=== PATIENT | female | born 1965 | race Caucasian/White ===

== ENCOUNTER 2021-03-28 12:16 | Outpatient (REF) | payer OTHER, SELFPAY ==
--- NOTE | ~2021-03-28 | MM_ITS ---
EXAMINATION: MM SCREENING DIGITAL BREAST TOMOSYNTHESIS, BILATERAL CLINICAL INFORMATION: Screening. Asymptomatic. The lifetime risk of breast cancer based on the Tyrer-Cuzick Model is 8.7%. COMPARISON: Mammography: March 22, 2020 and studies dating back to November 20, 2013 TECHNIQUE: Digital breast tomosynthesis is performed in both the craniocaudal and mediolateral oblique views along with computer-aided detection (CAD). Synthesized 2D images are generated from the tomosynthesis. FINDINGS: The breasts are heterogeneously dense, which may obscure small masses (ACR BI-RADS breast composition Category c). There are no significant masses, abnormal calcifications, or other abnormalities. MM/MM tomosynthesis screening BI IMPRESSION: There are no significant changes from prior study. ASSESSMENT: BI-RADS 1: Negative RECOMMENDATION: Routine annual mammography screening. This patient's information was entered into a reminder system with a target due date for their next mammogram.
== END 2021-03-28 12:17 | disposition home or self-care (01) ==
LOC: HO.MAMMO 12:16
PROVIDERS: PCP Family Medicine; Visit Provider Family Medicine
DX: Z12.31 Encounter for screening mammogram for malignant neoplasm of breast (principal)
CPT/HCPCS: 77063; 77067

== ENCOUNTER 2022-04-23 11:55 | Outpatient (REF) | payer OTHER, SELFPAY ==
--- NOTE | ~2022-04-23 | MM_ITS ---
EXAMINATION: MM SCREENING DIGITAL BREAST TOMOSYNTHESIS, BILATERAL CLINICAL INFORMATION: Screening. Asymptomatic. The lifetime risk of breast cancer based on the Tyrer-Cuzick Model is 8%. COMPARISON: Mammography: 03/28/2021, 03/22/2020, 03/17/2019 TECHNIQUE: Digital breast tomosynthesis is performed in both the craniocaudal and mediolateral oblique views along with computer-aided detection (CAD). Synthesized 2D images are generated from the tomosynthesis. FINDINGS: The breasts are heterogeneously dense, which may obscure small masses (ACR BI-RADS breast composition Category c). There are no significant masses, abnormal calcifications, or other abnormalities. Parenchymal pattern is similar to prior studies. Skin contours are smooth. MM/MM tomosynthesis screening BI IMPRESSION: No mammographic evidence of malignancy. ASSESSMENT: BI-RADS 1: Negative RECOMMENDATION: Routine annual mammography screening. This patient's information was entered into a reminder system with a target due date for their next mammogram.
== END 2022-04-23 11:56 | disposition home or self-care (01) ==
LOC: HO.MAMMO 11:55
PROVIDERS: PCP Family Medicine; Visit Provider Family Medicine
DX: Z12.31 Encounter for screening mammogram for malignant neoplasm of breast (principal)
CPT/HCPCS: 77063; 77067

== ENCOUNTER 2023-04-29 11:25 | Outpatient (REF) | payer OTHER, SELFPAY ==
--- NOTE | ~2023-04-29 | MM_ITS ---
EXAMINATION: MM SCREENING DIGITAL BREAST TOMOSYNTHESIS, BILATERAL CLINICAL INFORMATION: Screening. Asymptomatic. The lifetime risk of breast cancer based on the Tyrer-Cuzick Model is 7.6%. COMPARISON: Mammography: 03/28/2021, and exams dating back to 2010. TECHNIQUE: Digital breast tomosynthesis is performed in both the craniocaudal and mediolateral oblique views along with computer-aided detection (CAD). Synthesized 2D images are generated from the tomosynthesis. FINDINGS: The breasts are heterogeneously dense, which may obscure small masses (ACR BI-RADS breast composition Category c). There are no suspicious masses, suspicious grouped calcifications, or areas of architectural distortion. The parenchymal pattern is stable from prior exams. MM/MM tomosynthesis screening BI IMPRESSION: No mammographic evidence of malignancy. ASSESSMENT: BI-RADS BI-RADS 1 - Negative RECOMMENDATION: Routine annual mammography screening. 1 year F/U This examination should not preclude the clinical evaluation of a suspicious palpable abnormality. This patient's information was entered into a reminder system with a target due date for their next mammogram.
== END 2023-04-29 11:26 | disposition home or self-care (01) ==
LOC: HO.MAMMO 11:25
PROVIDERS: PCP Family Medicine; Visit Provider Family Medicine
DX: Z12.31 Encounter for screening mammogram for malignant neoplasm of breast (principal)
CPT/HCPCS: 77063; 77067

== ENCOUNTER → 2023-04-29 11:45 | Outpatient (BNV) | payer OTHER, SELFPAY | PROVIDERS: PCP Family Medicine; Visit Provider Radiology Diagnostic Radiology | DX: Z12.31 Encounter for screening mammogram for malignant neoplasm of breast (principal) | CPT/HCPCS: 77063; 77067 ==

== ENCOUNTER 2023-10-17 10:24 | Outpatient (REF) | payer OTHER, SELFPAY | END 2023-10-17 10:25 | disposition home or self-care (01) | LOC: HO.SH 10:24 | PROVIDERS: Visit Provider Family Medicine | DX: Z01.118 Encounter for examination of ears and hearing with other abnormal findings (principal); H91.93 Unspecified hearing loss, bilateral | CPT/HCPCS: 92557; 92567 ==

== ENCOUNTER 2023-12-10 13:34 | Outpatient (REF) | payer OTHER, SELFPAY ==
[2023-12-10 15:11] LABS: Free T4 (Free Thyroxine) 0.76 ng/dL (0.71-1.85); Thyroid Stimulating Hormone 3.19 uIU/mL (0.32-4.0)
[2023-12-11 18:23] LABS: Triiodothyronine T3 Free 2.9 pg/mL (2.3-4.2)
== END 2023-12-10 13:35 | disposition home or self-care (01) ==
LOC: HO.LAB 13:34
DX: E03.8 Other specified hypothyroidism (principal)
CPT/HCPCS: 36415; 84439; 84443; 84481

== ENCOUNTER 2024-03-05 09:08 | Outpatient (REF) | payer OTHER, SELFPAY ==
--- NOTE | ~2024-03-05 | XR_ITS ---
EXAMINATION: XR ELBOW, LEFT CLINICAL INFORMATION: Pain COMPARISON: X-ray 10/13/2018 TECHNIQUE: AP, lateral, and oblique views of the left elbow. FINDINGS: No fracture or joint effusion. Alignment is anatomic. Joint spaces are maintained. No abnormal soft tissue calcification. XR/XR elbow LT min 3V IMPRESSION: No radiographically evident acute osseous abnormality.
== END 2024-03-05 09:09 | disposition home or self-care (01) ==
LOC: HO.HOSX 09:08
PROVIDERS: Visit Provider Physician Assistant
DX: M25.522 Pain in left elbow (principal)
CPT/HCPCS: 73080

== ENCOUNTER 2024-03-05 10:02 | Outpatient (AMB) | payer OTHER, SELFPAY ==
--- NOTE | 2024-03-05 10:04 | MHC.OFFVIS ---
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 Patient reports that she was going down her gravel driveway when she slipped causing her to fall hitting her left elbow. She was seen at an Urgent Care in the [facility]. Currently her pain has improved as well as her ROM however she continues be limited in her ROM. Denies numbness or tingling. Hx of left elbow fracture years ago. 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 She was seen at Urgent Care at [facility] where x-rays were performed. She currently states she has improvement in her pain however she continues to have limited ROM in her elbow. She denies any numbness or tingling. She has a history of left elbow fracture years ago. [facility] Surgical History (Updated 03/05/24 @ 10:18 by MIKE Kuo) Hx of section Hx of elbow surgery Social History (Updated 03/05/24 @ 10:19 by MIKE Kuo) Patient Tobacco Use Status: Never used Tobacco Current occupational status: retired Current occupation: right hand dominant Review of Systems Const All systems reviewed & are unremarkable except as noted in HPI and below Physical Exam Const General: cooperative, healthy appearing, comfortable, no acute distress, well developed and alert Orientation/consciousness: patient oriented x3 HEENT Head: Yes normal to inspection, Yes normocephalic and Yes atraumatic Eyes General: appearance normal, both eyes and all related structures Resp Effort & Inspection: normal respiratory effort and able to speak in complete sentences Cardio Rate: regular rate Peripheral pulses: Peripheral pulses 2+ throughout GI Palpation (GI): Soft to palpation Skin Lesions: no lesions Rashes: no rashes Neuro General: patient oriented x3 Extrem Other: Left elbow: Normal to inspection. She has mild tenderness along the medial epicondyle. No swelling, no redness, no open wound. No pain over the lateral epicondyle. No pain over the radial head. No pain over the olecranon. She has full flexion however her extension is lacking 5 degrees. NVI. Office Procedures Fracture Care Fracture Billing Code: Fracture Billing Code Results Reviewed Results Reviewed: Xrays were obtained in the office today and personally reviewed by me of the left elbow show possible non displaced occult fx of the medial epicondyle Assessment & Plan Assessment & Plan (1) Fracture of medial epicondyle of humerus: Code(s): S42.443A - Displaced fracture (avulsion) of medial epicondyle of unspecified humerus, initial encounter for closed fracture Category: Medical Plan I cannot rule out fracture given the xray does not show definitively; however, she does have significant pain along the med. epicondyle. She will increase activities as tolerated. I did encourage her to use caution with any type of resistance or weight bearing activities for 3-4 weeks as symptoms allow. If symptoms persist or worsen, patient will contact the office, otherwise follow-up as needed. Orders: Orders XR elbow LT min 3V 03/05/24 M25.522 - Pain in left elbow Patient Instructions: Scribed for Vik Borden PA-C, by Houston Sanchez medical scientific liaison, on 03/05/2024 at 10:00 AM EST.? I, Vik Borden PA-C, have personally reviewed and agree with the information entered by the scribe. Coding Level of Care Code New Pt Level 3 (91307) Diagnoses Fracture of medial epicondyle of humerus S42.443A CPT Codes Fracture Care - Fracture Billing Code: Fracture Billing Code ([id number])
== END 2024-03-05 13:27 | disposition home or self-care (01) ==
PROVIDERS: PCP Family Medicine; Visit Provider Physician Assistant
DX: S42.442A Displaced fracture (avulsion) of medial epicondyle of left humerus, initial encounter for closed fracture (principal)
CPT/HCPCS: 99203

== ENCOUNTER 2024-04-30 11:07 | Outpatient (REF) | payer OTHER, SELFPAY ==
--- NOTE | ~2024-04-30 | MM_ITS ---
EXAMINATION: MM SCREENING DIGITAL BREAST TOMOSYNTHESIS, BILATERAL CLINICAL INFORMATION: Screening. Asymptomatic. COMPARISON: Mammography: This study is compared with prior exams dating back to 2019. TECHNIQUE: Digital breast tomosynthesis is performed in both the craniocaudal and mediolateral oblique views along with computer-aided detection (CAD). Synthesized 2D images are generated from the tomosynthesis. FINDINGS: The breasts are heterogeneously dense, which may obscure small masses (ACR BI-RADS breast composition Category c). There are no significant masses, abnormal calcifications, or other abnormalities. MM/MM tomosynthesis screening BI IMPRESSION: No mammographic evidence of malignancy. ASSESSMENT: BI-RADS BI-RADS 1 - Negative RECOMMENDATION: Routine annual mammography screening. 1 year F/U This examination should not preclude the clinical evaluation of a suspicious palpable abnormality. This patient's information was entered into a reminder system with a target due date for their next mammogram. Electronically signed by: Saumya Costa MD 05/28/2024 11:31 AM EDT
== END 2024-04-30 11:08 | disposition home or self-care (01) ==
LOC: HO.MAMMO 11:07
PROVIDERS: PCP Family Medicine; Visit Provider Family Medicine
DX: Z12.31 Encounter for screening mammogram for malignant neoplasm of breast (principal)
CPT/HCPCS: 77063; 77067

== ENCOUNTER → 2024-04-30 11:15 | Outpatient (BNV) | payer OTHER, SELFPAY | PROVIDERS: PCP Family Medicine; Visit Provider Radiology Diagnostic Radiology | DX: Z12.31 Encounter for screening mammogram for malignant neoplasm of breast (principal) | CPT/HCPCS: 77063; 77067 ==

== ENCOUNTER 2025-05-19 12:18 | Outpatient (REF) | payer OTHER, SELFPAY ==
--- OUTSIDE RECORDS SUMMARY | 2025-05-19 12:57 | XMS_ITS | Clinical Summary ---
Author Organization [facility] Address [address] [place] [id number] Care Team Providers Care Auto Inspection Specialist Name Role Phone Keysha Pritchard MD Primary Care Provider [phone] Allergies No known active allergies Medications sertraline (Zoloft) 50 MG tablet Take 50 mg by mouth 1 (one) time each day. Active Social History Tobacco Use Types Packs/Day Years Used Date Smoking Tobacco: Never Smokeless Tobacco: Never Tobacco Cessation:Counseling Given: Not Answered Alcohol Use Standard Drinks/Week Comments Yes 4 (1 standard drink = 0.6 oz pur e alcohol) Comments Unknown Sex and Gender Information Value Date Recorded Sex Assigned at Not on file Legal Sex Female 11:37 AM EDT Gender Identity Not on file Sexual Orientation Not on file Last Filed Vital Signs Vital Sign Reading Time Taken Comments Blood Pressure 161/91 02/24/2024 11:43 AM EDT Pulse 75 02/24/2024 11:43 AM EDT Temperature 36.5 C (97.7 F) 02/24/2024 11:43 AM EDT Respiratory Rate 18 02/24/2024 11:43 AM EDT Oxygen Saturation 100% 02/24/2024 11:43 AM EDT Inhaled Oxygen Concentration - - Weight - - Height - - Body Mass Index - - Plan of Treatment Health Maintenance Due Date Last Done Comments Hepatitis C Screening 1964 HIV Screening 1979 Annual Wellness Visit 1982 Pap Smear 1985 Cervical Cancer Screening 1994 HPV/Cotest 1994 CT Colonography 2009 FIT-DNA 2009 FIT 2009 FOBT 2009 Sigmoidoscopy 2009 Mammogram 2014 COVID-19 Vaccine ( season) 2024 03/07/2022, 08/01/2021, 11/04/2020, Additional history exists Influenza Vaccine (#1) 2025 , 08/08/2020, 07/26/2020, Additional history exists Colonoscopy 06/11/2033 06/11/2023 Colorectal Cancer Screening 06/11/2033 DTaP,Tdap,and Td Vaccines (3 - Td or Tdap) 08/05/2033 08/05/2023, 11/07/2012, 03/02/2008 Respiratory Syncytial Virus (RSV): 60+ years (1 - 1-dose 75+ series) 2039 Zoster Vaccines Completed 05/08/2023, 02/20/2023 HPV Vaccines Aged Out No longer eligi ble based on patient's age to complete this topic Meningococcal Vaccine Aged Out No neal guillermo eligible based on patient's age to complete this topic Pneumococcal Vaccine: Pediatrics (0 to 5 Years) and At-Risk Patients (6 to 64 Years) Aged Out No longer eligible based on patient's age to complete this topic Insurance [facility] [employer] [place] [id number] Care Teams Auto Inspection Specialist Relationship Specialty Start Date End Date Keysha Pritchard [place] [address] PCP - General Family Medicine 02/24/24
--- OUTSIDE RECORDS SUMMARY | 2025-05-19 12:57 | XMS_ITS | Encounter Summary ---
Author Organization [facility] Address [address] [address] Phone Care Team Providers Care Cylinder Handler Name Role Phone Unknown, Unknown Primary Care Provider Frances atkins Encounter Details Date Type Department Care Team (Late st Contact Info) Description 06/11/2023 Procedure Pass [facility] Endoscopy Admitting Dept Virtual Department [address] [place] [address] Social History Tobacco Use Types Packs/Day Years Used Date Smoking Tobacco: Former Cigarettes Q uit: 1984 Smokeless Tobacco: Never Comments:In college Alcohol Use Standard Drinks/Week Comments Yes 2 (1 standard drink = 0.6 oz pur e alcohol) Education Answer Date Recorded Are you interested in more education? Not on heather e 01/18/2023 Are you concerned about learning? Not on file 01/18/2023 No 01/18/2023 No 01/18/2023 Digital Access Answer Date Recorded No 02/16/2023 No 02/16/2023 Reliable internet access at home? Not on file 02/16/2023 Device with a working camera? Not on file Intimate Partner Violence Answer Date R ecorded Are you denied basic needs s uch as food, clothing, or medical care? No 06/11/2023 In the past 12 months have y ou been in a relationship with a person who hurts, threatens, or tries to control you? No 06/11/2023 Are you denied basic needs s uch as food, clothing, or medical care? No 06/11/2023 In the past 12 months have y ou been in a relationship with a person who hurts, threatens, or tries to control you? No 06/11/2023 Comments Unknown Sex and Gender Information Value Date Recorded Sex Assigned at Not on file Legal Sex Female 10:33 PM EDT Gender Identity Not on file Sexual Orientation Not on file documented as of this encounter Plan of Treatment Not on file documented as of this encounter Visit Diagnoses Not on filedocumented in this encounter Care Teams Cylinder Handler Relationship Specialty Start Date End Date Unknown, Unknown, PCP - General 01/13/20 documented as of this encounter Additional Source Comments The information contained in this document represents components of the legal health record. It is not the complete legal health record.[facility]
--- OUTSIDE RECORDS SUMMARY | 2025-05-19 12:57 | XMS_ITS | Clinical Summary ---
Author Organization [facility] Address [address] [address] Phone Care Team Providers Care Machinery Rigger Name Role Phone Unknown, Unknown Primary Care Provider Frances labchristian Allergies No known active allergies Medications sertraline (ZOLOFT) 50 MG tablet 04/27/2023 Active CASH PROCESSING SPECIALIST THYROID 30 mg Tab 06/03/2023 Active magnesium oxide 250 mg (150 mg elemental) Tab Take 250 mg by mouth daily. Active ginkgo biloba 40 mg Tab Take by mouth. Active cyanocobalamin, vitamin B-12, 1000 MCG tablet Take 1,000 mcg by mouth daily. Active Social History Tobacco Use Types Packs/Day Years Used Date Smoking Tobacco: Former Cigarettes Q uit: 1983 Smokeless Tobacco: Never Tobacco Cessation:Counseling Given: Not Answered Comments:In college Alcohol Use Standard Drinks/Week Comments [...] Sign Reading Time Taken Comments Blood Pressure 101/52 06/11/2023 9:20 AM EDT Pulse 64 06/11/2023 9:20 AM EDT Temperature 36.1 C (97 F) 06/11/2023 9:05 AM EDT Respiratory Rate 21 06/11/2023 9:20 AM EDT Oxygen Saturation 96% 06/11/2023 9:20 AM EDT Inhaled Oxygen Concentration - - Weight 63 kg (139 lb) 06/11/2023 7:48 AM EDT Height 167.6 cm (5' 5.98 ) 06/11/2023 7:48 AM ED T Body Mass Index 22.45 06/11/2023 7:48 AM EDT Plan of Treatment Health Maintenance Due Date Last Done Comments Adult Td,Tdap Booster 1964 LIPID PANEL 1964 DEPRESSION SCREENING 1976 SMOKING Hx and SMOKELESS TOBACCO SCREENING 1977 HEPATITIS C SCREENING 1982 HIV ONE-TIME SCREENING (18-65 YEARS) 1982 PAP SMEAR 1985 MAMMOGRAM 2004 COLOGUARD 2009 FIT TEST 2009 FOBT 2009 SIGMOIDOSCOPY 2009 VIRTUAL COLONOSCOPY 2009 PNEUMOCOCCAL VACCINES (50+ years) (1 of 1 - PCV) 2014 COVID-19 VACCINE ( - season) 2024 03/07/2022, 08/01/2021, 11/04/2020, Additional history exists COLONOSCOPY 06/11/2033 06/11/2023 COLORECTAL CANCER SCREENING 06/11/2033 RSV VACCINE (1 - 1-dose 75+ series) 2039 ZOSTER VACCINES Completed 05/08/2023, 02/20/2023 HEPATITIS A VACCINES Aged Out No long er eligible based on patient's age to complete this topic HIB VACCINES Aged Out No longer eligi ble based on patient's age to complete this topic MENINGOCOCCAL VACCINES (ACWY) Aged Out No longer eligible based on patient's age to complete this topic MENINGOCOCCAL VACCINES (B) Aged Out N o longer eligible based on patient's age to complete this topic Medical Devices Not on file Procedures Procedure Name Priority Date/Time Associated Diagnosis Comments ENDOSCOPY, COLON 06/11/2023 8:29 AM EDT from Last 3 Months or Most Recently Relevant to Health Maintenance Results * ENDOSCOPY, COLON (06/11/2023 8:29 AM EDT) Narrative Transcriptions Rema León MD, MPH - 06/11/2023 8:29 AM EDT [facility] Patient Name: Corie Princedereck Jaramillo Attending MD:: Rema León MD, Procedure Date: 06/11/2023 8:29 AM Date of : 1965 Age: 57 Admit Type: Outpatient Gender: Female Room: [facility] Referring MD: KEYSHA MARTINEZ MD Exam Type: Colonoscopy Indications: Screening for colorectal malignant neoplasm Medications: Monitored Anesthesia Care Procedure: Informed consent was obtained from the patientafter discussion of the indications, limitations, alternatives, benefits, and risks of the procedure. Risks specifically discussed include but are not limited to medication reactions, missed lesions, bleeding, perforation, or the need for emergent surgery. Throughout the procedure, the patient's blood pressure, pulse, end-tidal CO2, and oxygensaturations were monitored continuously. The Olympus adult variable colonoscope [id number] #4 was introduced through the anus and advanced to the terminal ileum. The colonoscopy was performedwithout difficulty. The patient tolerated the procedurewell. The quality of the bowel preparation was evaluated using the BBPS ([place] Bowel Preparation Scale)with scores of: Right Colon = 3, Transverse Colon = 3and Left Colon = 3 (entire mucosa seen well with no residual staining, small fragments of stool oropaque liquid). The total BBPS score equals 9. Theterminal ileum, ileocecal valve, appendiceal orifice, and rectum were photographed. Complications: No immediate complications. Findings: The perianal and digital rectal examinations were normal. The terminal ileum appeared normal. A 3 mm polyp was found in the cecum. The polyp was sessile. The polyp was removed with a jumbo cold forceps. Resection and retrieval were complete. Two sessile polyps were found in the sigmoid colon. The polyps were 2 to 3 mm in size. These polypswere removed with a jumbo cold forceps. Resection and retrieval were complete. The rest of the colon (entire examined portion) appeared normal. Non-bleeding external and internal hemorrhoids were found during retroflexion. The hemorrhoids were moderate. Impression: - The examined portion of the ileum was normal. - One 3 mm polyp in the cecum, removed with a jumbo cold forceps. Resected and retrieved. - Two 2 to 3 mm polyps in the sigmoid colon,removed with a jumbo cold forceps. Resected andretrieved. - The rest of the entire examined colon isnormal. - Non-bleeding external and internal hemorrhoids. Recommendation: - Await pathology results. - Depending on family history (reports sister with newly diagnosed polyp with possible dysplasia),will need repeat in 5-7 years (5 years if positivefamily history). Dr Rema León Rema León MD 06/11/2023 9:07:20 AM This report has been signed electronically. Number of Addenda: 0 Note Initiated On: 06/11/2023 8:29 AM Procedure Code(s): --- Professional --- 00747, Colonoscopy, flexible; with biopsy, single or multiple --- Technical --- 07983, Colonoscopy, flexible; with biopsy, single or multiple Diagnosis Code(s): --- Professional --- Z12.11, Encounter for screening for malignantneoplasm of colon K64.8, Other hemorrhoids D12.0, Benign neoplasm of cecum D12.5, Benign neoplasm of sigmoid colon --- Technical --- Z12.11, Encounter for screening for malignantneoplasm of colon K64.8, Other hemorrhoids D12.0, Benign neoplasm of cecum D12.5, Benign neoplasm of sigmoid colon CPT copyright 2021 [employer]. All rights reserved. The codes documented in this report are preliminary and upon recruiting internship reviewmay be revised to meet current compliance requirements. Procedure Date: 06/11/2023 8:29:47 AM [address] [place] [address] Keysha Martinez MD GI PROCEDURE ORDERABLES Final Result from Last 3 Months or Most Recently Relevant to Health Maintenance Insurance [facility] TOTAL CHOICE INDEMNITY [address] [facility] [facility] [facility]DEMNITY [facility] Sign [facility] TOTAL CHOICE [place]DE[employer] [address] [place] [address] [address] TOTAL CHOICE INDEMNITY Care Teams Machinery Rigger Relationship Specialty Start Date End Date Unknown, Unknown, MD PCP - General 01/13/20 Additional Source Comments The information contained in this document represents components of the legal health record. It is not the complete legal health record.[facility]
== END 2025-05-19 12:19 | disposition home or self-care (01) ==
LOC: HO.MAMMO 12:18
PROVIDERS: PCP Family Medicine; Visit Provider Family Medicine
DX: Z12.31 Encounter for screening mammogram for malignant neoplasm of breast (principal)
CPT/HCPCS: 77063; 77067

== ENCOUNTER → 2025-05-19 12:45 | Outpatient (BNV) | payer OTHER, SELFPAY | PROVIDERS: PCP Family Medicine; Visit Provider Radiology Body Imaging | DX: Z12.31 Encounter for screening mammogram for malignant neoplasm of breast (principal) | CPT/HCPCS: 77063; 77067 ==